=== PATIENT | male | born 1945 | race Caucasian/White ===

== ENCOUNTER 2017-07-11 13:46 | Emergency (ER) | payer OTHER ==
[2017-07-11 13:58] VITALS: BMI 30.7
--- NOTE | 2017-07-11 14:47 | RAD ---
Examination: Portable AP chest History: Chest pain Comparison reference: None Findings: Normal heart size with clear lungs and pleural spaces. Impression: No abnormality identified. Cut Reported By:
[2017-07-11] MEDS ORDERED: CATAPRES TAB 0.2 MG PO ONE (14:54)
[2017-07-11 14:58] LABS: BASOPHILS % (AUTO) 0.4 % (0.2-1.0); EOSINOPHILS # (AUTO) 0.2 x10^3/uL (0.0-0.2); EOSINOPHILS % (AUTO) 2.4 % (0.9-2.9); HEMATOCRIT 38.9 % (42.0-54.0); HEMOGLOBIN 13.6 g/dL (13.5-18.0); LYMPHOCYTES # (AUTO) 1.6 X10^3/uL (1.3-2.9); LYMPHOCYTES % (AUTO) 23.1 % (21.0-51.0); MEAN CORPUSCULAR HEMOGLOBIN 29.9 pg (27.0-34.0); MEAN CORPUSCULAR HGB CONC 34.9 g/dL (33.0-35.0); MEAN CORPUSCULAR VOLUME 85.6 fL (80.0-100.0); MEAN PLATELET VOLUME 8.7 fL (7.4-11.0); MONOCYTES # (AUTO) 0.6 x10^3/uL (0.3-0.8); MONOCYTES % (AUTO) 9.3 % (0.0-13.0); NEUTROPHILS # (AUTO) 4.4 x10^3/uL (2.2-4.8); NEUTROPHILS % (AUTO) 64.8 % (42.0-75.0); PLATELET COUNT 184 X10^3/uL (150.0-450.0); RED BLOOD COUNT 4.54 X10^6/uL (4.7-6.0); RED CELL DISTRIBUTION WIDTH 13.2 % (11.6-16.5); WHITE BLOOD COUNT 6.8 X10^3/uL (3.6-10.0)
[2017-07-11] MEDS ORDERED: CATAPRES TAB 0.2 MG ONE (15:01)
--- NOTE | 2017-07-11 15:02 | DR.HTN ---
HPI - Time Seen Time seen: 14:53 - Primary Care Physician Primary Care Physician: HELEN PORTER - Complaints Chief Complaint Doctors Comments: Patient complains of high blood pressure for a long time and was in [facility] recently with the same problem with his blood pressure 230 range for three week. States he is taking his blood pressure medicines but his blood pressure is still elevated. States he has been having xiphoid chest pain and epigastric pain for a long time also. States he was hurting when he was in the Hospital in [place]. States his blood pressure has been going up at times. States he has had six stentsin the past done in [place] and [place]. states shamar planning feeder is in [place] and he has not seen him since Aug 2016. States he had a stroke while in the hospital in [place] with left hand and facial weakness that has resolved and he is taking Plavix and aspirin. He denies tobacco or alcohol usage. He denies any recent trauma. States he has been having dull chest pain with deep pain for a long time. Chief Complaint:: PT C/O BEING D/C FROM [facility] THURSDAY OF THIS WEEK FOR HIS BP AND HE STATES " THEY DID NOT DO ANYTHING FOR ME".. PT C/O INTERMITTANT CHEST PAINS THAT ARE CHORONIC". PT STATES " MY DOCTOR TOLD ME TO COME TO [facility] IF THIS HAPPENED AGAIN". Self Treatment fo Chief Complaint: PT STATES " MY BLOOD PRESSURE HAS BEEN HIGH FOR YEARS AND THE LAST MONTH ITS REALLY HIGH". - Reviewed Nurses Notes Reviewed: Yes - Source History Provided: Patient - Mode of Arrival Mode of Arrival: Ambulatory - Timing Onset of Chief Complaint: 06/23/17 - Severity Severity: Mild - Context Circumstances: Spontaneous Onset History of: Hypertension Treatment of HTN Prior to Arrival: Taking meds as prescribed Recent use of:: denies: Cocaine, Amphetamines, Cold medications - Associated Signs and Symptoms HTN Associated Signs and Symptoms: Chest Pain PMH - PMH Past Medical History: Yes Past Medical History: Hypertension Past Medical History Comment: AFIB, CHF, TIA, CVA Past Surgical History: Yes Surgical History: Angioplasty/Stents, Cholecystectomy - Family History History of Family Medical Conditions: No - Social History Does patient currently use any type of tobacco product: No Type of Tobacco Use: None Does any household member use tobacco: No Alcohol Use: None Do you use any recreational Drugs:: No Lives With: Family Lives Where: Home - infectious screening In the last 2 months have you had wt loss of >10#?: NO Have you had fever, night sweats or hemotysis?: No Have you traveled outside the country in the last 6 months?: No Isolation: Standard ROS - Review of Systems Constitutional: No Symptoms Reported. negative: See HPI, Chills, Diaphoresis, Fever, Malaise, Weakness, Irritable, Fatigue, Loss of Appetite, Other Eyes: No Symptoms Reported ENTM: No Symptoms Reported. negative: See HPI, Ear Pain, Ear Discharge, Pulling on Ears, Hearing Loss, Nose Pain, Nose Discharge, Epistaxis, Nose Congestion, Mouth Pain, Mouth Swelling, Loose Teeth, Drooling, Throat Pain, Throat Swelling, Ear Foreign Body Respiratoy: No Symptoms Reported. negative: See HPI, Productive Cough, Non- Productive Cough, Moist Cough, Dry Cough, Hacking Cough, Barking Cough, Brassy Cough, Orthopnea, Short of Breath, Stridor, Wheezing, Hemoptysis, Other Cardiovascular: No Symptoms Reported, Chest Pain. negative: See HPI, Edema, Palpitations, Syncope, Cyanosis, Skin Mottling, Other Gastrointestinal/Abdominal: No Symptoms Reported. negative: See HPI, Abdominal Pain, Constipation, Diarrhea, Nausea, Vomiting, Food Intolerance, Other Genitourinary: No Symptoms Reported. negative: See HPI, Discharge, Dysuria, Frequency, Hematuria, Pain, Bleeding, Other Neurological: No Symptoms Reported. negative: See HPI, Anxiety, Depressed, Emotional Problems, Headache, Numbness, Paresthesia, Pre-existing Deficit, Seizure, Tingling, Tremors, Weakness, Dizziness, Problems Walking, Speech Problem, Other Musculoskeletal: No Symptoms Reported Integumentary: No Symptoms Reported Hematologic/Lymphatic: No Symptoms Reported. negative: See HPI, Anemia, Blood Clots, Easy Bleeding, Easy Bruising, Swollen Glands, Lymphadenopathy, Other Endocrine: No Symptoms Reported. negative: See HPI, Excessive Sweating, Flushing, Intolerance to Cold, Intolerance to Heat, Increased Hunger, Increased Thirst, Increased Urine, Unexplained Weight Gain, Unexplained Weight Loss, Failure to Thrive, Decreased Appetite, Other Psychiatric: No Symptoms Reported. negative: See HPI, Anxiety, Depression, Hallucinations, Excessive crying, Suicidal, Other PE - Vital Signs Vitals: Temperature 97.1 F Pulse Rate [Left Brachial] 54 Pulse Rate 67 Respiratory Rate 20 Blood Pressure [Left Arm] 140/64 Blood Pressure 217/98 O2 Sat by Pulse Oximetry 93 - General Limitations: No Limitations General Appearance: Alert, In Distress (slight) - Head Head Exam: Normal Inspection, Atraumatic, Normocephalic - Eyes Eye exam: Normal Appearance, PERRL, EOMI. negative: Scleral Icterus, Conjunctival Injection, Nystagmus, Miosis, Mydrasis, Periorbital Swelling, Periorbital Tenderness, Other Pupils: Regular, Round: Bilateral, Reactive: Bilateral Sclera/Conjunctival: Normal Inspection: Bilateral - ENT ENT Exam: Normal Exam, Normal Oropharynx, Normal External Ear Exam, Mucous Membranes Moist, Mucous Membranes Dry, TM's Normal Bilaterally - Neck Neck Exam: Normal Inspection, Full ROM, Trachea Midline - Chest Chest Inspection: Normal Inspection, Symmetric Chest Wall Rise - Respiratory Respiratory Exam: Normal Lung Sounds Bilat Respiratory Exam: Bilateral Clear to Auscultation - Cardiovascular Cardiovascular Exam: Regular Rate, Normal Rhythm, Normal Heart Sounds - Abdominal Exam Abdominal Exam: Normal Inspection, Normal Bowel Sounds, Soft Abdominal Tenderness: negative: RUQ, RLQ, LUQ, LLQ, Epigastrium, Suprapubic, Diffuse, Mild, Moderate, Severe, Other - Extremities Extremities Exam: Normal Inspection, Full ROM, Normal Capillary Refill. negative: Tenderness, Edema, Joint Swelling, Calf Tenderness, Other - Back Back Exam: Normal Inspection, Full ROM - Neurologic Neurological Exam: Alert, Oriented X3, CN II-XII Intact, Reflexes Normal (gait not tested). negative: Normal Gait Patient Oriented To: Person, Place, Time Speech: Fluid Speech Cranial Nerve Exam: EOM Function (II, III, IV, ): Normal, Facial Sensation (V) : Normal, Gag reflex (XI): Normal, Spinal Accessory Function (XI): Normal, Tongue Deviation: Normal Cerebellar Function: Normal Vibratory/Position Motor Strength - LUE: 5/5 Motor Strength - RUE: 5/5 Motor Strength - LLE: 5/5 Motor Strength - RLE: 5/5 Sensory Exam Upper Extremity: Light Touch: Normal Sensory Exam Lower Extremity: Light Touch: Normal DTR: Patellar (L): 2+, patellar (R): 2+ - Psychiatric Psychiatric Exam: Normal Affect, Normal Mood - Skin Skin Exam: Warm, Dry, Intact, Normal Color ROR - Labs Reviewed Laboratory Results Reviewed?: Yes (all labs and x-ray results reviewed and discussed with patient) Result Diagrams: 07/11/17 14:30 07/11/17 14:30 Laboratory: WBC 6.8 X10^3/uL (3.6-10.0) 07/11/17 14:30 RBC 4.54 X10^6/uL (4.7-6.0) L 07/11/17 14:30 Hgb 13.6 g/dL (13.5-18.0) 07/11/17 14:30 Hct 38.9 % (42.0-54.0) L 07/11/17 14:30 MCV 85.6 fL (80.0-100.0) 07/11/17 14:30 MCH 29.9 pg (27.0-34.0) 07/11/17 14:30 MCHC 34.9 g/dL (33.0-35.0) 07/11/17 14:30 RDW 13.2 % (11.6-16.5) 07/11/17 14:30 Plt Count 184 X10^3/uL (150.0-450.0) 07/11/17 14:30 MPV 8.7 fL (7.4-11.0) 07/11/17 14:30 Neut % 64.8 % (42.0-75.0) 07/11/17 14:30 Lymph % 23.1 % (21.0-51.0) 07/11/17 14:30 [place] % 9.3 % (0.0-13.0) 07/11/17 14:30 Eos % 2.4 % (0.9-2.9) 07/11/17 14:30 Baso % 0.4 % (0.2-1.0) 07/11/17 14:30 Neut # 4.4 x10^3/uL (2.2-4.8) 07/11/17 14:30 Lymph # 1.6 X10^3/uL (1.3-2.9) 07/11/17 14:30 [place] # 0.6 x10^3/uL (0.3-0.8) 07/11/17 14:30 Eos # 0.2 x10^3/uL (0.0-0.2) 07/11/17 14:30 Baso # 0.0 X10^3/uL (0.0-0.1) 07/11/17 14:30 Absolute Nucleated RBC 0.0 /100WBC 07/11/17 14:30 INR Target Range - 07/11/17 14:30 INR 0.99 (0.8-1.3) 07/11/17 14:30 PTT 29.6 SECONDS (22.9-36.5) 07/11/17 14:30 PTT Comment - 07/11/17 14:30 Sodium 139 mmol/L (136-145) 07/11/17 14:30 Corrected Sodium TNP 07/11/17 14:30 Potassium 4.2 mmol/L (3.5-5.1) 07/11/17 14:30 Chloride 104 mmol/L (98-107) 07/11/17 14:30 Carbon Dioxide 23.4 mmol/L (21-32) 07/11/17 14:30 BUN 15 mg/dL (7-18) 07/11/17 14:30 Creatinine 0.93 mg/dL (0.70-1.30) 07/11/17 14:30 Est GFR (MDRD) Af Amer > 60 (>60) 07/11/17 14:30 Est GFR (MDRD) Non-Af > 60 (>60) 07/11/17 14:30 Glucose 106 mg/dL (65-99) H 07/11/17 14:30 Calcium 10.1 mg/dL (8.5-10.1) 07/11/17 14:30 Corrected Calcium TNP 07/11/17 14:30 Magnesium 2.0 mg/dL (1.7-2.9) 07/11/17 14:30 Total Bilirubin 0.20 mg/dL (0.2-1.0) 07/11/17 14:30 AST 29 Units/L (15-37) 07/11/17 14:30 ALT 72 Units/L (12-78) 07/11/17 14:30 Alkaline Phosphatase 64 Units/L (46-116) 07/11/17 14:30 Creatine Kinase 65 Units/L (39-308) 07/11/17 14:30 CK-MB (CK-2) < 1.0 ng/mL (0-4.0) 07/11/17 14:30 CK/CKMB % Calc 1.5 % (<4) 07/11/17 14:30 Troponin I < 0.02 ng/mL (0-1.5) 07/11/17 14:30 Total Protein 7.7 g/dL (6.4-8.2) 07/11/17 14:30 Albumin 3.9 g/dL (3.4-5.0) 07/11/17 14:30 Globulin 3.8 g/dL (2.5-4.5) 07/11/17 14:30 Albumin/Globulin Ratio 1.0 Ratio (1.1-2.1) L 07/11/17 14:30 H. pylori IgG Antibody Negative (NEGATIVE) 07/11/17 14:30 - XRAY XRAY Interpreted by: Radiologist (CXR: Normal heart size wtih clear lungs and pleural spaces) - EKG Rate: 76 [place]: Normal Rhythm: NSR Block: RBBB ST: Nonsp - Diagnosis Discharge Problem: Hypertension, accelerated, History of sleep apnea, Anxiety Chest pain Qualifiers: Chest pain type: unspecified Qualified Code(s): R07.9 - Chest pain, unspecified - Discharge Plan Disposition: 01 HOME, SELF-CARE Condition: Stable - Follow ups/Referrals Follow ups/Referrals: Brissa PORTER [Primary Care Provider] - 3 days - Instructions Instructions: Hypertension, [id number], DASH Eating Plan, Managing Your High Blood Pressure Additional Instructions: Patient to continue current home medicines and followup with his local doctor. patient to take his Clonidine as needed for elevated blood pressure greater than 180/100. Patient to return if gets worst.
[2017-07-11 15:10] LABS: ALANINE AMINOTRANSFERASE 72 Units/L (12-78); ALBUMIN 3.9 g/dL (3.4-5.0); ALKALINE PHOSPHATASE 64 Units/L (46-116); ASPARTATE AMINO TRANSFERASE 29 Units/L (15-37); BLOOD UREA NITROGEN 15 mg/dL (7-18); CALCIUM 10.1 mg/dL (8.5-10.1); CARBON DIOXIDE 23.4 mmol/L (21-32); CHLORIDE 104 mmol/L (98-107); CREATININE 0.93 mg/dL (0.70-1.30); SODIUM 139 mmol/L (136-145); TOTAL PROTEIN 7.7 g/dL (6.4-8.2); eGFR BLACK RACES > 60 (>60); eGFR NON BLACK RACES > 60 (>60)
[2017-07-11 16:50] LABS: CREATINE KINASE 65 Units/L (39-308); CREATINE KINASE MB < 1.0 ng/mL (0-4.0); TROPONIN I < 0.02 ng/mL (0-1.5)
[2017-07-11 16:51] LABS: CKMB % 1.5 % (<4)
[2017-07-11 17:50] VITALS: BP 140/64
== END 2017-07-11 18:37 | disposition home or self-care (01) ==
LOC: ER 13:58
DX: I10 Essential (primary) hypertension (principal); F41.8 Other specified anxiety disorders; R07.89 Other chest pain; G47.30 Sleep apnea, unspecified
CPT/HCPCS: 36415; 71010; 80053; 82550; 82553; 83735; 84484; 85025; 85610; 85730; 86677; 93005; 93010; 96365; 99283; A4216; A4222